=== PATIENT | female | born 2000 | race Caucasian/White ===

== ENCOUNTER → 2019-05-16 | Outpatient (CLI) | payer OTHER ==
[2019-05-16 16:17] LABS: A TYPE INFLUENZA AG NEGATIVE (NEGATIVE); B INFLUENZA AG NEGATIVE (NEGATIVE)
== END ==
LOC: OD 15:04
PROVIDERS: ATTEND Nurse Practitioner Acute Care
DX: R68.89 Other general symptoms and signs (principal)
CPT/HCPCS: 87804